=== PATIENT | female | born 1990 | race Caucasian/White ===

== ENCOUNTER 2023-11-19 08:43 | Emergency (ER) | payer OTHER ==
[~2023-11-19] VITALS: Ht 167.6 cm; Wt 64.0 kg
[2023-11-19 08:57] VITALS: BP 106/49; PULSE 80; RESP 16; TEMP 98.1; O2SAT 99
[2023-11-19] MEDS: MORPHINE SULFATE 4 MG/ML INJ (FOR IV/IM USE) IV STA (09:16)
[2023-11-19] MEDS: ONDANSETRON HCL 4MG/2ML INJ IV STA (09:39)
[2023-11-19] MEDS: SODIUM CHLORIDE 0.9% 1,000 ML IV ONE (09:39)
[2023-11-19 09:51] LABS: HEMATOCRIT. 28.5 % (36.0-48.0); HEMOGLOBIN. 9.7 g/dL (12.0-16.0); MEAN CORPUSCULAR HEMOGLOBIN 33.7 pg (28.0-32.0); MEAN CORPUSCULAR HGB CONC 34.1 g/dL (31.0-37.0); MEAN CORPUSCULAR VOLUME 98.8 fL (81.0-99.0); MEAN PLATELET VOLUME 7.7 fl (7.4-10.4); RED BLOOD CELL COUNT 2.88 mill/uL (4.2-5.4); RED CELL DISTRIBUTION WIDTH 13.1 % (11.6-14.6); WHITE BLOOD COUNT 4.2 x1000/uL (4.5-11.0)
[2023-11-19 09:56] LABS: INR 1.1
[2023-11-19 09:59] LABS: DIFFERENTIAL COMMENT 1
[2023-11-19 10:04] LABS: CHLORIDE 108 mEq/L (98-107); HCG SCREEN NEGATIVE; POTASSIUM 3.7 mEq/L (3.5-5.1); SODIUM 139 mEq/L (136-145)
[2023-11-19 10:05] LABS: CALCIUM 8.6 mg/dL (8.7-10.4); CARBON DIOXIDE 23 mEq/L (21-32)
[2023-11-19 10:10] LABS: CREATININE 0.7 mg/dL (0.6-1.0); GLUCOSE 96 mg/dL (70-105); UREA NITROGEN BLOOD 12 mg/dL (9-23)
[2023-11-19] MEDS ORDERED: MORPHINE SULFATE 4 MG/ML INJ (FOR IV/IM USE) IV ONE (11:00)
[2023-11-19 15:08] LABS: PLATELET ESTIMATE MARKEDLY DECREASED
[2023-11-19 15:10] LABS: PLATELET 31 x1000/uL (130-400)
== END 2023-11-19 12:24 | disposition left against medical advice (07) ==
LOC: ER 08:43 → EDBEDREQ 10:35 → CANBEDREQ 11:45 → ER 12:24
DX: K85.90 Acute pancreatitis without necrosis or infection, unspecified (principal); Z88.1 Allergy status to other antibiotic agents; Z85.71 Personal history of Hodgkin lymphoma
CPT/HCPCS: 80048; 84703; 83690; 85025; 85610; 36415; 74176; 96361; 96374; 96375; 99285; J2405; J2270; J7030; Z7610 ×2